=== PATIENT | male | born 1970 | race Caucasian/White ===

== ENCOUNTER 2019-01-03 10:21 | Day surgery (SDC) | payer BC, OTHER ==
[2018-12-30 11:53] VITALS: BMI 25.4
[~2019-01-03 10:21] MED LIST: LACTATED RINGERS 1,000 ML IV SCH; LIDOCAINE 1% 20 ML VIAL (10MG/ML) FOR IV START INTRADERMA PRN
[2019-01-03 10:43] VITALS: RESP 16; TEMP 97.7
[2019-01-03] MEDS ORDERED: LIDOCAINE 1% INJ 10MG/ML (20 ML MDV) ONE (12:03)
[2019-01-03] MEDS ORDERED: PROPOFOL 10 MG/ML 20 ML VIAL IV ONE (12:03)
[2019-01-03 13:16] VITALS: BP 112/68; PULSE 59
--- NOTE | 2019-01-03 13:36 | P.PCN ---
Date of Procedure: 01/03/19 Procedure(s) Performed: Procedures: 1. Esophagogastroduodenoscopy and biopsy. 2. Colonoscopy and biopsy and polypectomy. Preoperative diagnosis: Chronic reflux symptoms and change in bowel habits. Postoperative diagnosis: 1. Sliding hiatal hernia with short Sue's esophagus but no strictures or esophagitis. 2. Gastritis and duodenitis. 3. Multiple biopsies obtained from the duodenum, antrum, esophagus including separate biopsies from the Sue's segment. 4. Colonoscopy reveals no evidence of colitis. 5. Biopsies obtained from the terminal ileum, blindly, and from the right colon. 6. Distal sigmoid polyp snared but no large polyps or cancer. Preparation: HalfLytely prep. Sedation: Was provided by anesthesia. Brief clinical history: The patient is a 48-year-old male who is scheduled for this evaluation because of chronic reflux symptoms and more recently issues with diarrhea and weight loss of around 3 months duration. I have performed an upper endoscopy in July 2014 because of his chronic reflux symptoms and sore throat and at that time he had evidence of mild gastritis and duodenitis and small sliding hiatal hernia. The biopsies showed small bowel mucosa with normal villous architecture, chronic active gastritis with negative H. pylori infection and chronic esophagitis. For the last 3 months, the patient has been having diarrhea and has lost 25 pounds. He never had a prior colonoscopy. Procedure: With the patient on his left lateral decubitus position and after informed consent and adequate sedation, I passed the Olympus-GIF H190 video upper endoscope through the cricopharyngeus down the esophagus. GE junction was around 40 cm from the incisors. It was irregular and there was a short segment of Sue's esophagus and a sliding hiatal hernia. The hiatal hernia measured around 2-3 cm. The esophagus did not show obvious esophagitis or strictures. The endoscope was then passed into the stomach which was insufflated with air and inspected in detail including the retroflex view in the cardia. There was gastritis noted but no ulcers or bleeding. Pyloric channel did not show any ulcers. Duodenal bulb showed erythema, edema and erosions consistent with duodenitis but no ulcers or bleeding. Post bulbar area and descending duodenum with no obvious pathology noted. I obtained biopsies from the duodenum, antrum, esophagus including the short Sue's segment then the endoscope was withdrawn and I then proceeded to perform the colonoscopy. Perianal area did not show any fissures or fistulas. There were no masses felt on digital rectal examination. The Olympus CFH 190 and video colonoscope was then inserted in the rectum in the usual fashion and advanced to the cecum. I was able to obtain a blind biopsy from the terminal ileum and I also obtained right colon biopsies. The preparation was less than ideal. The mucosa appeared healthy. There was a 1.5 cm polyp in the distal sigmoid which I snared and retrieved by suctioning it to the tip of the endoscope then withdrawing the endoscope and restarting the exam. No obvious diverticular disease or other pathology. The patient tolerated the procedure well. Plan: The patient was reassured. Will await biopsy results and further plans can be made based on his course and biopsy results including the timing of his repeat colonoscopy. I will keep you updated on his progress.
== END 2019-01-03 14:22 | disposition home or self-care (01) ==
LOC: ORWHC2ENDO 10:21
DX: K29.80 Duodenitis without bleeding (principal); K29.60 Other gastritis without bleeding; B96.81 Helicobacter pylori [H. pylori] as the cause of diseases classified elsewhere; K22.70 Barrett's esophagus without dysplasia; K44.9 Diaphragmatic hernia without obstruction or gangrene; K21.9 Gastro-esophageal reflux disease without esophagitis; R63.4 Abnormal weight loss; Z68.24 Body mass index [BMI] 24.0-24.9, adult; F17.210 Nicotine dependence, cigarettes, uncomplicated; F32.9 Major depressive disorder, single episode, unspecified; J44.9 Chronic obstructive pulmonary disease, unspecified; Z79.899 Other long term (current) drug therapy
CPT/HCPCS: 45380; 45385; 43239; J2001; J2704; 88305; 88342

== ENCOUNTER → 2022-07-23 | Outpatient (CLI) | payer OTHER ==
--- NOTE | 2022-07-23 11:23 | XR ---
EXAMINATION TYPE: XR Hip Limited RT DATE OF EXAM: 07/23/2022 CLINICAL HISTORY: Fall injury years ago with pain worse at night. TECHNIQUE: AP and frogleg views of the right hip are obtained. COMPARISON: None. FINDINGS: There is no acute fracture/dislocation evident in the right hip. Moderate superior lateral acetabular spurring. The joint space is maintained. The overlying soft tissue appears unremarkable. There are 2 round sclerotic lesions in the proximal right femur favoring benign bone islands. IMPRESSION: As above. Given patient's symptoms of increasing pain at night one might consider nuclear medicine bone scan to exclude osteoid osteoma with presence of sclerotic foci in the proximal femur. Correlate clinically.
== END | disposition home or self-care (01) ==
LOC: RADXRMAIN 10:14
PROVIDERS: ATTEND Family Medicine
DX: M25.551 Pain in right hip (principal)
CPT/HCPCS: 73501

== ENCOUNTER 2023-02-25 12:31 | Day surgery (SDC) | payer OTHER ==
[~2023-02-25 12:31] MED LIST changes: -LIDOCAINE 1% 20 ML VIAL (10MG/ML) FOR IV START INTRADERMA PRN
[2023-02-25 12:46] VITALS: RESP 16; TEMP 97.6
[2023-02-25] MEDS ORDERED: LIDOCAINE 2% INJ 20 MG/ML (2 ML VIAL) ONE (13:11)
[2023-02-25] MEDS ORDERED: PROPOFOL 10 MG/ML 20 ML VIAL IV ONE (13:11)
--- NOTE | 2023-02-25 13:23 | P.PCN ---
Date of Procedure: 02/25/23 Procedure(s) Performed: BRIEF HISTORY: Patient is a 53-year-old, pleasant, white male scheduled for an upper endoscopy as a part of evaluation of long-standing history of GERD and Sue's esophagus. He is presently on omeprazole 20 mg daily and doing well. PROCEDURE PERFORMED: Esophagogastroduodenoscopy with biopsy. PREOPERATIVE DIAGNOSIS: GERD/Sue's esophagus. IV sedation per anesthesia. PROCEDURE: After informed consent was obtained, the patient was brought into the endoscopy unit. IV sedation was administered by Anesthesia under continuous monitoring. Initially the Olympus GIF-140 video endoscope was inserted into the mouth. Esophagus intubated without any difficulty. It was gradually advanced into the stomach and duodenum and carefully examined. The bulb and the second part of the duodenum appeared normal. The scope at this time was withdrawn to the stomach, adequately insufflated with air, and upon careful examination, mucosa of the antrum, body, cardia and the fundus appeared normal. The scope was then withdrawn into the esophagus. I'll hiatal hernia noted. The GE junction was located at 40 cm from the incisors. There was a long segment of Sue's esophagus extending from 30-40 cm from the incisors and multiple biopsies were done from this area. The rest of the esophagus appeared normal. There were no erosions or ulcerations seen and the patient tolerated the procedure well. IMPRESSION: 1. Long segment Sue's esophagus extending from 38-40 cm to the incisors status post multiple biopsies. 2. Small hiatal hernia. RECOMMENDATIONS: The findings of this examination were discussed with the patient as well as his family. He was advised to follow with the biopsy results. If the biopsy confirms the presence of Sue's esophagus he can have a repeat upper endoscopy in 3 years..
[2023-02-25 13:30] VITALS: BP 139/87; PULSE 68
== END 2023-02-25 14:06 | disposition home or self-care (01) ==
LOC: ORWHC2ENDO 12:31
PROVIDERS: ATTEND Internal Medicine Gastroenterology
DX: K31.A19 Gastric intestinal metaplasia without dysplasia, unspecified site (principal); K21.9 Gastro-esophageal reflux disease without esophagitis; K22.70 Barrett's esophagus without dysplasia; K44.9 Diaphragmatic hernia without obstruction or gangrene; F17.200 Nicotine dependence, unspecified, uncomplicated; Z79.83 Long term (current) use of bisphosphonates; Z79.899 Other long term (current) drug therapy
CPT/HCPCS: 88305; 43239; J2704; J2001

== ENCOUNTER → 2023-10-16 | Outpatient (CLI) | payer OTHER ==
--- NOTE | 2023-10-16 14:53 | XR ---
EXAMINATION TYPE: XR chest 2V DATE OF EXAM: 10/16/2023 COMPARISON: None HISTORY: 53-year-old male J18.1, lobar pneumonia TECHNIQUE: Frontal and lateral views FINDINGS: Heart normal size. Aorta and pulmonary vasculature within normal limits. No consolidation or pleural effusion. IMPRESSION: No acute cardiopulmonary process.
== END | disposition home or self-care (01) ==
LOC: RADXRMAIN 11:02
PROVIDERS: ATTEND Family Medicine
DX: J18.1 Lobar pneumonia, unspecified organism (principal)
CPT/HCPCS: 71046

== ENCOUNTER → 2024-11-02 | Outpatient (CLI) | payer OTHER ==
--- NOTE | 2024-11-02 16:33 | CTL ---
EXAMINATION TYPE: CT Low Dose Lung DATE OF EXAM ORDERED: 11/02/2024 COMPARISON: None CLINICAL INDICATION: Male, 54 years old with history of Z12.2 ENCNTR SCREEN F F17.210 NICOTINE DEPEN DENCE; [facility], current smoker 1PPD x 30 years., Lung cancer screening, History of Smoking/tobacco use. TECHNIQUE: Low dose computed tomography scan was performed through the chest at 1 mm thick sections a nd reconstructed images in multiple planes at 1 mm and [address] DLP: 145.[address] CTDI: 3.7 mGy Automated exposure control for dose reduction was used. CT DIAGNOSTIC QUALITY: Satisfactory Findings: There is a 5.6 mm nodule in the right lower lobe. There is a second 4.4 mm nodule adjacent to this no dule. There are multiple scattered sub-4 mm juxtapleural nodules and a few scattered micronodules. There is no lung consolidation or abnormal interstitial density. There is no pleural effusion or pneumothorax. The great vessels and heart are normal in size. There is no mediastinal, hilar or axillary adenopathy. Limited scanning through the upper abdomen reveals no gross abnormality. There are no focal osseous lesions. IMPRESSION: 1. Lung RADS category 3, likely benign. 4-6 month follow-up CT is recommended to confirm stability. 2. No acute cardiopulmonary disease.. [facility], , 11/02/2024 4:30 PM
== END | disposition home or self-care (01) ==
LOC: RADCTMAIN 15:11
PROVIDERS: ATTEND Family Medicine
DX: Z12.2 Encounter for screening for malignant neoplasm of respiratory organs (principal); F17.210 Nicotine dependence, cigarettes, uncomplicated
CPT/HCPCS: 71271

== ENCOUNTER → 2025-05-26 | Outpatient (CLI) | payer OTHER ==
--- NOTE | 2025-05-26 14:38 | CT ---
EXAMINATION TYPE: CT chest wo con DATE OF EXAM: 05/26/2025 2:14 PM COMPARISON: 11/02/2024 CLINICAL INDICATION: Male, 55 years old with history of R91.8 OTHER NONSPEC ABN FIND OF LUNG FIELD, F /u for abnormal finding in lung field TECHNIQUE: Axial images were obtained at 5 mm thick sections. Reconstructed images are reviewed on [employer] computer in the coronal plane. Contrast used: mL of , (none if empty) Oral contrast used: (none if empty) CT DLP: 419.5 mGycm, Automated exposure control for dose reduction was used. FINDINGS: Portion of the thyroid visualized is normal. There is a 0.5 cm nodule in the periphery of the right lung. Series 4 image 35. There is a 0.4 cm nodule posterior lateral right lung with an adjacent 0.3 cm nodule. No interval kristina wth is evident. 0.4 cm nodule in the anterior right upper lung field. Series 4 image 21. These were p resent previously. No enlarged mediastinal or hilar adenopathy is evident. The ascending aorta diameter at the level o f the main pulmonary artery is cm. The main pulmonary artery diameter at the bifurcation is cm. No significant coronary artery calcifications. Limited CT sections are obtained through the upper abdomen. Abdomen is essentially unremarkable. IMPRESSION: 1. Stable appearing small nodules largest measuring 0.5 cm. Recommend Follow-up low-dose CT chest 6 m onths. [facility], Workstation: [facility], 05/26/2025 2:35 PM
== END | disposition home or self-care (01) ==
LOC: RADCTMAIN 13:57
PROVIDERS: ATTEND Family Medicine
DX: R91.8 Other nonspecific abnormal finding of lung field (principal)
CPT/HCPCS: 71250